=== PATIENT | male | born 1950 | race Two or more races ===

== ENCOUNTER 2019-02-10 05:52 | Day surgery (SDC) | payer OTHER ==
[~2019-02-10 05:52] MED LIST: ADULT ASPIRIN81 MG PO; CARBIDOPA PO; CENTRUM ADULTS1 EACH PO; CLONAZEPAM0.5 MG PO; COZAAR100 MG PO; FOLGARD TABLET1 EACH PO; PROVASTATIN; [UNRECOGNIZED DRUG - OTHER] PO
[2019-02-10] MEDS ORDERED: PERCOCET 5-3251 EACH PO (14:28)
[2019-02-10] MEDS ORDERED: SURFAK240 M1 PO (14:29)
[2019-02-10] MEDS ORDERED: POLY119PG PO (14:29)
== END 2019-02-10 17:25 | disposition home or self-care (01) ==
LOC: CIR.AMB 05:52
DX: K40.90 Unilateral inguinal hernia, without obstruction or gangrene, not specified as recurrent (principal); K42.0 Umbilical hernia with obstruction, without gangrene; K43.6 Other and unspecified ventral hernia with obstruction, without gangrene

== ENCOUNTER 2021-02-21 05:42 | Day surgery (SDC) | payer OTHER ==
[~2021-02-21 05:42] MED LIST changes: +CARBO/LEVO PO; +PERCOCET 5-3251 EACH PO; +POLY119PG PO; +SURFAK240 M1 PO; +[UNRECOGNIZED DRUG - CODE] PO
[2021-02-21] MEDS ORDERED: TYLENOL ARTHRI650 MG PO (13:57)
[2021-02-21] MEDS ORDERED: NEURONTIN600 M1 PO (13:57)
[2021-02-21] MEDS ORDERED: SURFAK240 M1 PO (13:58)
[2021-02-21] MEDS ORDERED: POLY119PG PO (13:58)
== END 2021-02-21 19:35 | disposition home or self-care (01) ==
LOC: CIR.AMB 05:42 → LAB 07:00 → CIR.AMB 09:15
PROVIDERS: ATTEND Surgery
DX: K40.91 Unilateral inguinal hernia, without obstruction or gangrene, recurrent (principal); K43.2 Incisional hernia without obstruction or gangrene; K42.9 Umbilical hernia without obstruction or gangrene; Z20.822 Contact with and (suspected) exposure to COVID-19